=== PATIENT | male | born 1970 | race Caucasian/White ===

== ENCOUNTER 2020-08-31 22:44 | Emergency (ER) | payer SELFPAY ==
[2020-08-31] MEDS ORDERED: Sodium Chloride 0.9% 10 ML Syringe FLUSH PRN (23:06)
[2020-08-31] MEDS ORDERED: Sodium Chloride 0.9% 2.5 ML Syringe FLUSH PRN (23:06)
--- NOTE | 2020-08-31 23:08 | EDM.PDOC ---
ED HPI GENERAL MEDICAL PROBLEM - General Chief Complaint: Respiratory Problem Stated Complaint: COVID SYMPTOMS Time Seen by Provider: 08/31/20 23:02 - History of Present Illness INITIAL COMMENTS - FREE TEXT/NARRATIVE: History of present illness: The patient has a cough and generalized weakness since days ago. The patient developed a fever and chills tonight. White medicine fever intermittently come in. She has been trying to get him come in to be evaluated for his cough and weakness. They are both on a diet but his appetite is not very good now. He is generally weak and fatigued but not showing any focal neurologic deficit. The patient says he is not short of breath. The patient occasionally smokes but not recently. He did for high blood pressure. He does not know what his cholesterol is. History of heart or lung disease. [] Review of systems: As per history of present illness and below otherwise all systems reviewed and negative. Past medical history: As per history of present illness and as reviewed below otherwise noncontributory. Surgical history: As per history of present illness and as reviewed below otherwise noncontributory. Social history: No reported history of drug or alcohol abuse. Family history: As per history of present illness and as reviewed below otherwise noncontributory. Physical exam: Constitutional - well developed, well-nourished and in no acute distress HEENT - normocephalic, no evidence of trauma - external nose and mouth normal - no mass in neck and no JVD - mucosae moist EYES - full EOM, PERRL, no icterus - no evidence of inflammation, injection, or drainage Respiratory - no respiratory distress, equal bilateral expansion, lungs clear to auscultation and no abnormal lung sounds Cardiovascular - Regular Rhythm with S1 and S2 appreciated and no murmur, gallop or rub. GI - abdomen soft without distension or organomegaly - normal bowel sounds - no guard or rebound Musculoskeletal no gross deformity of long bones or joints - no tenderness, swelling or edema Neurologic - Alert and oriented times four - CN II-XII grossly intact - motor sensory and coordination symmetrically normal Psychiatric - appropriate mood and affect with normal thought content Hematologic - No petechiae or purpura - mucosa appropriate color and sclera not pale - normal nail bed color and refill Integument - no rash or evidence of trauma - normal turgor Diagnostics: [] Therapeutics: [] Impression: [] Plan: [] Definitive disposition and diagnosis as appropriate pending reevaluation and review of above. - Related Data Allergies Allergy/AdvReac Type Severity Reaction Status Date / Time codeine Allergy Vomiting Verified 08/31/20 23:07 Home Meds: Home Meds lisinopriL [Lisinopril] 30 mg PO QAM 08/31/20 [History] ED ROS GENERAL - Review of Systems Review Of Systems: Comprehensive ROS is negative, except as noted in HPI. ED EXAM, GENERAL - Physical Exam Exam: See Below Free Text/Narrative:: Physical exam as in the HPI EKG INTERPRETATION EKG Interpretation Comments: EKG done at 11:06 PM on 08/31/2020. The time read is 1:12 PM. Rhythm is sinus heart rate is 97 CT interval is 133 QT T is 492 this is 34 QRS shows Q waves in the inferior leads and T wave are normal T interval is normal no prior for comparison impression is no acute injury Course - Vital Signs Text/Narrative:: 1:55 AM update the patient had a blood pressure is low was low 80s on arrival and a BUN and creatinine indicating prerenal azotemia and profound dehydration. BUN was 62 with a creatinine of 3.8 the baseline in November was BUN 20 and creatinine 1.1. Patient had a liter of fluid and was still dropping his blood pressure into the 80s. Second liter running at this time. Patient is short of breath with minimal exertion. Oxygen saturation 93% but he is on 3 L of oxygen. Plan to continue nebulization while we give him 2 more liters of fluid. We need to verify that he can make urine. The hospital that are closest to us have been called and [facility] do not have beds for COVID patient. It would be a 7-hour transport to [place] and at this point I do not feel like patient can be safely placed in [facility] for 7 hours. He wants to stay here but we have no bed for him in this hospital. I am to give him a total of 3 L of fluid and bronchodilator treatment every hour. Then we will reassess. 04:14 AM patient has gradually needed more oxygen. Pressure has stabilized after 2 L of fluid and we are giving him third. His blood gas indicates a metabolic acidosis. His hypoxia is a concern. I discussed this case with Dr. Castro at [facility] in [place] because this is the closest facility with a bed that can accommodate this patient. Agreed to patient status could change dramatically in the timing take to get there by ground so we would arrange fixed wing transport so that he could remain in my care until closer to time he would arrive there. In the meantime his creatinine did not support a study to rule out pulmonary embolus and we elected invasive COVID-19 infection and unexplained hypoxia to give a dose of Lovenox now. The patient's renal function did not support administration on room does of air. The patient is to go to [facility]. Last Recorded V/S: Last Vital Signs Temp 98.8 F 08/31/20 22:59 Pulse 95 09/01/20 02:43 Resp 24 H 09/01/20 02:43 BP 104/35 L 09/01/20 02:43 Pulse Ox 92 L 09/01/20 02:43 - Orders/Labs/Meds Orders: Active Orders 24 hr Category Date Time Status EKG Documentation Completion [RC] AM Care 08/31/20 23:06 Active RT Post Treatment Assessment [RC] Click to Edit Care 08/31/20 23:33 Active RT Post Treatment Assessment [RC] Click to Edit Care 09/01/20 01:35 Active RT Pre-Treatment Assessment [RC] Click to Edit Care 08/31/20 23:33 Active RT Pre-Treatment Assessment [RC] Click to Edit Care 09/01/20 01:35 Active CORONAVIRUS COVID-19 PCR PHL Stat Lab 08/31/20 23:40 Received Albuterol [Ventolin HFA] Med 09/01/20 01:33 Active 18 gm INH Q2H PRN Sodium Chloride 0.9% [Normal Saline] 1,000 ml Med 08/31/20 23:30 Active IV ASDIRECTED Sodium Chloride 0.9% [Saline Flush] Med 08/31/20 23:06 Active 10 ml FLUSH ASDIRECTED PRN Sodium Chloride 0.9% [Saline Flush] Med 08/31/20 23:06 Active 2.5 ml FLUSH ASDIRECTED PRN Isolation [COMM] Routine Oth 08/31/20 23:07 Active Saline Lock Insert [OM.PC] Stat Oth 08/31/20 23:06 Ordered Medication Orders Albuterol (Ventolin Hfa) 18 gm INH Q2H PRN PRN Reason: Shortness of Breath Sodium Chloride (Normal Saline) 1,000 mls @ 999 mls/hr IV ASDIRECTED WALE Last Admin: 08/31/20 23:22 Dose: 999 mls/hr Documented by: BARBARA Sodium Chloride (Saline Flush) 10 ml FLUSH ASDIRECTED PRN PRN Reason: Keep Vein Open Last Admin: 08/31/20 23:23 Dose: 10 ml Documented by: BARBARA Sodium Chloride (Saline Flush) 2.5 ml FLUSH ASDIRECTED PRN PRN Reason: Keep Vein Open Last Admin: 08/31/20 23:23 Dose: 2.5 ml Documented by: BARBARA Labs: Laboratory Tests 08/31/20 08/31/20 08/31/20 Range/Units 23:09 23:09 23:09 WBC 9.55 (4.0-11.0) K/uL RBC 5.06 (4.50-5.90) M/uL Hgb 15.8 (13.0-17.0) g/dL Hct 45.1 (38.0-50.0) % MCV 89.1 (80.0-98.0) fL MCH 31.2 (27.0-32.0) pg MCHC 35.0 (31.0-37.0) g/dL RDW Std Deviation 46.1 (28.0-62.0) fl RDW Coeff of Nola 14 (11.0-15.0) % Plt Count 146 L (150-400) K/uL MPV 11.60 (7.40-12.00) fL Neut % (Auto) 81.3 H (48.0-80.0) % Lymph % (Auto) 10.5 L (16.0-40.0) % [place] % (Auto) 8.1 (0.0-15.0) % Eos % (Auto) 0.0 (0.0-7.0) % Baso % (Auto) 0.1 (0.0-1.5) % Neut # (Auto) 7.8 H (1.4-5.7) K/uL Lymph # (Auto) 1.0 (0.6-2.4) K/uL [place] # (Auto) 0.8 (0.0-0.8) K/uL Eos # (Auto) 0.0 (0.0-0.7) K/uL Baso # (Auto) 0.0 (0.0-0.1) K/uL Nucleated RBC % 0.0 /100WBC Nucleated RBCs # 0 K/uL ABG pH (7.35-7.45) ABG pCO2 (35-45) mmHG ABG pO2 (75-100) mmHG ABG HCO3 (22-26) mEq/L ABG Total CO2 ABG Base Excess (-2.0-2.0) Lactate (0.20-2.00) mmol/L Sodium 138 (136-148) mmol/L Potassium 3.1 L (3.5-5.1) mmol/L Chloride 101 (98-107) mmol/L Carbon Dioxide 23.6 (21.0-32.0) mmol/L BUN 62 H (7.0-18.0) mg/dL Creatinine 3.8 H (0.8-1.3) mg/dL Est Cr Clr Drug Dosing 20.75 mL/min Estimated GFR (MDRD) 16.9 ml/min Glucose 111 H (74-106) mg/dL Calcium 7.9 L (8.5-10.1) mg/dL Total Bilirubin 0.3 (0.2-1.0) mg/dL AST 74 H (15-37) IU/L ALT 60 (14-63) IU/L Alkaline Phosphatase 71 (46-116) U/L Troponin I < 0.050 (0.000-0.056) ng/mL B-Natriuretic Peptide 6 (<100) PG/ML Total Protein 6.8 (6.4-8.2) g/dL Albumin 3.2 L (3.4-5.0) g/dL Globulin 3.6 (2.6-4.0) g/dL Albumin/Globulin Ratio 0.9 (0.9-1.6) SARS CoV-2 RNA Rapid RUTH ANN (NEGATIVE) 08/31/20 09/01/20 09/01/20 Range/Units 23:40 01:55 03:55 WBC (4.0-11.0) K/uL RBC (4.50-5.90) M/uL Hgb (13.0-17.0) g/dL Hct (38.0-50.0) % MCV (80.0-98.0) fL MCH (27.0-32.0) pg MCHC (31.0-37.0) g/dL RDW Std Deviation (28.0-62.0) fl RDW Coeff of Nola (11.0-15.0) % Plt Count (150-400) K/uL MPV (7.40-12.00) fL Neut % (Auto) (48.0-80.0) % Lymph % (Auto) (16.0-40.0) % [place] % (Auto) (0.0-15.0) % Eos % (Auto) (0.0-7.0) % Baso % (Auto) (0.0-1.5) % Neut # (Auto) (1.4-5.7) K/uL Lymph # (Auto) (0.6-2.4) K/uL [place] # (Auto) (0.0-0.8) K/uL Eos # (Auto) (0.0-0.7) K/uL Baso # (Auto) (0.0-0.1) K/uL Nucleated RBC % /100WBC Nucleated RBCs # K/uL ABG pH 7.300 L (7.35-7.45) ABG pCO2 40 (35-45) mmHG ABG pO2 108 H (75-100) mmHG ABG HCO3 20 L (22-26) mEq/L ABG Total CO2 17.6 ABG Base Excess -6.5 L (-2.0-2.0) Lactate 1.1 (0.20-2.00) mmol/L Sodium (136-148) mmol/L Potassium (3.5-5.1) mmol/L Chloride (98-107) mmol/L Carbon Dioxide (21.0-32.0) mmol/L BUN (7.0-18.0) mg/dL Creatinine (0.8-1.3) mg/dL Est Cr Clr Drug Dosing mL/min Estimated GFR (MDRD) ml/min Glucose (74-106) mg/dL Calcium (8.5-10.1) mg/dL Total Bilirubin (0.2-1.0) mg/dL AST (15-37) IU/L ALT (14-63) IU/L Alkaline Phosphatase (46-116) U/L Troponin I (0.000-0.056) ng/mL B-Natriuretic Peptide (<100) PG/ML Total Protein (6.4-8.2) g/dL Albumin (3.4-5.0) g/dL Globulin (2.6-4.0) g/dL Albumin/Globulin Ratio (0.9-1.6) SARS CoV-2 RNA Rapid RUTH ANN POSITIVE H (NEGATIVE) Meds: Medications Generic Name Dose Route Start Last Admin Trade Name Freq PRN Reason Stop Dose Admin Albuterol 18 gm 09/01/20 01:33 Ventolin Hfa INH Q2H PRN Shortness of Breath Sodium Chloride 1,000 mls @ 999 mls/hr 08/31/20 23:30 08/31/20 23:22 Normal Saline IV 999 mls/hr ASDIRECTED WALE Administration Sodium Chloride 10 ml 08/31/20 23:06 08/31/20 23:23 Saline Flush FLUSH 10 ml ASDIRECTED PRN Administration Keep Vein Open Sodium Chloride 2.5 ml 08/31/20 23:06 08/31/20 23:23 Saline Flush FLUSH 2.5 ml ASDIRECTED PRN Administration Keep Vein Open Discontinued Medications Generic Name Dose Route Start Last Admin Trade Name Freq PRN Reason Stop Dose Admin Albuterol 18 gm 08/31/20 23:32 09/01/20 00:03 Ventolin Hfa INH 08/31/20 23:33 2 puff ONETIME ONE Administration Albuterol Confirm 08/31/20 23:57 09/01/20 00:30 Ventolin Hfa Administered 08/31/20 23:58 Not Given Dose 18 gm .ROUTE .STK-MED ONE Dexamethasone Confirm 09/01/20 00:23 09/01/20 00:30 Dexamethasone Administered 09/01/20 00:24 Not Given Dose 10 mg .ROUTE .STK-MED ONE Dexamethasone 10 mg 09/01/20 00:24 09/01/20 00:30 Dexamethasone IVPUSH 09/01/20 00:25 10 mg ONETIME ONE Administration Enoxaparin Sodium 120 mg 09/01/20 04:15 09/01/20 04:27 Lovenox SUBCUT 09/01/20 04:16 120 mg ONETIME ONE Administration Sodium Chloride 1,000 mls @ 999 mls/hr 09/01/20 01:18 09/01/20 01:23 Normal Saline IV 09/01/20 02:18 999 mls/hr .BOLUS ONE Administration Sodium Chloride 1,000 mls @ 999 mls/hr 09/01/20 01:34 09/01/20 03:41 Normal Saline IV 09/01/20 02:34 999 mls/hr .BOLUS ONE Administration Potassium Chloride 40 meq 09/01/20 01:19 09/01/20 01:23 Potassium Chloride PO 09/01/20 01:20 40 meq ONETIME ONE Administration Potassium Chloride Confirm 09/01/20 01:20 09/01/20 01:36 Potassium Chloride Administered 09/01/20 01:21 Not Given Dose 40 meq .ROUTE .STK-MED ONE Departure - Departure Time of Disposition: 05:30 Disposition: DC/Tfer to Acute Hospital 02 Condition: Serious Clinical Impression: COVID-19, Dehydration, Bronchospasm, TERESA (acute kidney injury), Hypoxia, Hypotension - Discharge Information Referrals: Marcia Barron ORE BUYER [Primary Care Provider] - Forms: ED Department Discharge Sepsis Event Note (ED) - Evaluation Sepsis Screening Result: No Definite Risk - Focused Exam Vital Signs: Vital Signs Temp Pulse Resp BP BP Pulse Ox 09/01/20 02:43 95 24 H 104/35 L 92 L 09/01/20 02:10 81 94/35 L 84 L 09/01/20 01:30 84 20 92/56 L 94 L 09/01/20 01:00 91 20 83/47 L 94 L 09/01/20 00:30 91 20 92/41 L 93 L 09/01/20 00:00 93 20 97/55 L 94 L 08/31/20 23:45 89 20 97/49 L 93 L 08/31/20 23:30 93 21 H 89/56 L 94 L 08/31/20 23:21 94 L 08/31/20 23:10 98 21 H 87/45 L 88 L 08/31/20 22:59 98.8 F 101 H 21 H 74/32 L 89 L - My Orders Last 24 Hours: My Active Orders 08/31/20 23:06 EKG Documentation Completion [RC] AM Sodium Chloride 0.9% [Saline Flush] 10 ml FLUSH ASDIRECTED PRN Sodium Chloride 0.9% [Saline Flush] 2.5 ml FLUSH ASDIRECTED PRN Saline Lock Insert [OM.PC] Stat 08/31/20 23:07 Isolation [COMM] Routine 08/31/20 23:30 Sodium Chloride 0.9% [Normal Saline] 1,000 ml IV ASDIRECTED 08/31/20 23:33 RT Post Treatment Assessment [RC] Click to Edit RT Pre-Treatment Assessment [RC] Click to Edit 08/31/20 23:40 CORONAVIRUS COVID-19 PCR PHL Stat 09/01/20 01:33 Albuterol [Ventolin HFA] 18 gm INH Q2H PRN 09/01/20 01:35 RT Post Treatment Assessment [RC] Click to Edit RT Pre-Treatment Assessment [RC] Click to Edit - Assessment/Plan Last 24 Hours: My Active Orders 08/31/20 23:06 EKG Documentation Completion [RC] AM Sodium Chloride 0.9% [Saline Flush] 10 ml FLUSH ASDIRECTED PRN Sodium Chloride 0.9% [Saline Flush] 2.5 ml FLUSH ASDIRECTED PRN Saline Lock Insert [OM.PC] Stat 08/31/20 23:07 Isolation [COMM] Routine 08/31/20 23:30 Sodium Chloride 0.9% [Normal Saline] 1,000 ml IV ASDIRECTED 08/31/20 23:33 RT Post Treatment Assessment [RC] Click to Edit RT Pre-Treatment Assessment [RC] Click to Edit 08/31/20 23:40 CORONAVIRUS COVID-19 PCR PHL Stat 09/01/20 01:33 Albuterol [Ventolin HFA] 18 gm INH Q2H PRN 09/01/20 01:35 RT Post Treatment Assessment [RC] Click to Edit RT Pre-Treatment Assessment [RC] Click to Edit
[2020-08-31] MEDS ORDERED: Sodium Chloride 0.9% 1,000 ML IV SCH (23:30)
[2020-08-31] MEDS ORDERED: Albuterol 8 GM Inhaler INH ONE (23:32)
[2020-08-31 23:47] LABS: BLOOD UREA NITROGEN,BUN 62 mg/dL (7.0-18.0); CARBON DIOXIDE,CO2 23.6 mmol/L (21.0-32.0); CHLORIDE,CL 101 mmol/L (98-107); GLUCOSE RANDOM 111 mg/dL (74-106); POTASSIUM,K 3.1 mmol/L (3.5-5.1); SODIUM,NA 138 mmol/L (136-148)
[2020-08-31] MEDS ORDERED: Albuterol HFA 18 Gm Inhaler ONE (23:57)
--- NOTE | 2020-09-01 00:21 | CR ---
HISTORY: Cough COMPARISON: None available FINDINGS: A portable erect AP view of the chest was obtained at 23 47 hours. A few calcified granulomata are seen in the left perihilar lung and more laterally in the left mid-upper lung. The lungs are otherwise clear. No focal or diffuse infiltrates are present. The heart is normal in size. The mediastinum is normal in appearance. The osseous structures are normal in appearance for the patient`s age. IMPRESSION: No active disease seen in the chest. Multiple calcified granulomata in the left perihilar lung as well as in the lateral left upper lung. Dictated by Fabian Ashley MD @ Sep 01 2020 12:15AM Signed by Dr. Fabian Ashley @ Sep 01 2020 12:20AM
[2020-09-01] MEDS ORDERED: Dexamethasone 10 MG/ML SDV ONE (00:23)
[2020-09-01] MEDS ORDERED: Dexamethasone 10 MG/ML SDV IVPUSH ONE (00:24)
[2020-09-01] MEDS ORDERED: Sodium Chloride 0.9% 1,000 ML IV ONE ×2 (01:18→01:34)
[2020-09-01] MEDS ORDERED: Potassium Chloride 10% 20 MEQ/15 ML Soln 30 ML UD Cup PO ONE (01:19)
[2020-09-01] MEDS ORDERED: Potassium Chloride 10% 20 MEQ/15 ML Soln 30 ML UD Cup ONE (01:20)
[2020-09-01] MEDS ORDERED: Albuterol HFA 18 Gm Inhaler INH PRN (01:33)
[2020-09-01] MEDS ORDERED: Enoxaparin 150 MG/1 ML Syringe SUBCUT ONE (04:15)
== END 2020-09-01 06:08 ==
LOC: MW.ED 22:44
DX: U07.1 COVID-19 (principal); J98.01 Acute bronchospasm; E86.0 Dehydration; R09.02 Hypoxemia; I95.9 Hypotension, unspecified; N17.9 Acute kidney failure, unspecified; F17.200 Nicotine dependence, unspecified, uncomplicated; Z88.5 Allergy status to narcotic agent
CPT/HCPCS: 36415; 36600; 71045; 80053; 82803; 83605; 83880; 84484; 85025; 87635; 87804; 93005; 96361; 96372; 96374; 99285; A9270; J1100; J1650; J7030; J3535-GY; U0002

== ENCOUNTER 2021-03-05 12:19 | Emergency (ER) | payer OTHER ==
[2021-03-05] MEDS ORDERED: Lidocaine 5% Oint 35.44 GM Tube TOP ONE (12:58)
[2021-03-05] MEDS ORDERED: Naproxen 500 MG Tab PO ONE (12:58)
[2021-03-05] MEDS ORDERED: Lidocaine 5% 700 MG Patch TRDERM ONE (13:01)
[2021-03-05] MEDS ORDERED: Lidocaine 5% 700 MG Patch ONE (13:02)
--- NOTE | 2021-03-05 13:02 | EDM.PDOC ---
ED HPI GENERAL MEDICAL PROBLEM - General Chief Complaint: Back Pain or Injury Stated Complaint: FELL ON BACK Time Seen by Provider: 03/05/21 12:31 Source of Information: Reports: Patient History Limitations: Reports: No Limitations - History of Present Illness INITIAL COMMENTS - FREE TEXT/NARRATIVE: Patient is a 51-year-old male presents today for lower left-sided back pain. P atient dates that he was at work when he slipped landing with back. Patient had some pain on the neck area try spine Flexeril at home without relief. Patient denies any lower extremity numbness or weakness no urinary incontinence or saddle anesthesia. Patient denies any other injuries are initiated. Lower Back Pain Score (Numeric/FACES): 9 - Related Data Allergies Allergy/AdvReac Type Severity Reaction Status Date / Time codeine Allergy Vomiting Verified 03/05/21 12:30 Home Meds: Home Meds lisinopriL [Lisinopril] 30 mg PO QAM 08/31/20 [History] Cyclobenzaprine [Flexeril] 5 mg PO Q8HR PRN 5 Days #15 tab 03/05/21 [Rx] Lidocaine 5% [Lidoderm 5%] 1 patch TOP DAILY 5 Days #5 patch 03/05/21 [Rx] Naproxen Sodium 550 mg PO BID PRN 5 Days #10 tablet 03/05/21 [Rx] Past Medical History Cardiovascular History: Reports: Hypertension Respiratory History: Reports: COPD Gastrointestinal History: Reports: None Genitourinary History: Reports: None Musculoskeletal History: Reports: None - Infectious Disease History Infectious Disease History: Reports: Chicken Pox, Measles, Mumps - Past Surgical History Cardiovascular Surgical History: Reports: None GI Surgical History: Reports: None Musculoskeletal Surgical History: Reports: Other (See Below) Other Musculoskeletal Surgeries/Procedures:: R leg Social & Family History - Family History Family Medical History: No Pertinent Family History - Tobacco Use Tobacco Use Status *Q: Unknown Ever Used Tobacco - Caffeine Use Caffeine Use: Reports: Coffee - Recreational Drug Use Recreational Drug Use: No ED ROS GENERAL - Review of Systems Review Of Systems: See Below Constitutional: Reports: No Symptoms HEENT: Reports: No Symptoms Respiratory: Reports: No Symptoms Cardiovascular: Reports: No Symptoms Endocrine: Reports: No Symptoms GI/Abdominal: Reports: No Symptoms : Reports: No Symptoms Musculoskeletal: Reports: Back Pain Skin: Reports: No Symptoms Neurological: Reports: No Symptoms Psychiatric: Reports: No Symptoms Hematologic/Lymphatic: Reports: No Symptoms Immunologic: Reports: No Symptoms ED EXAM,LOWER BACK PAIN/INJURY - Physical Exam Exam: See Below Exam Limited By: No Limitations General Appearance: Alert, WD/WN, No Apparent Distress Respiratory/Chest: No Respiratory Distress, Lungs Clear Cardiovascular: Normal Peripheral Pulses, Regular Rate, Rhythm GI/Abdominal: Normal Bowel Sounds, Soft, Non-Tender Back Exam: Normal Inspection, Full Range of Motion, Paraspinal Tenderness. No: Vertebral Tenderness Extremities: Normal Inspection, Normal Range of Motion, Non-Tender Course - Vital Signs Last Recorded V/S: Last Vital Signs Temp 97.2 F 03/05/21 12:31 Pulse 89 03/05/21 12:31 Resp 20 03/05/21 12:31 BP 128/75 03/05/21 12:31 Pulse Ox - Orders/Labs/Meds Meds: Medications Discontinued Medications Generic Name Dose Route Start Last Admin Trade Name Freq PRN Reason Stop Dose Admin Cyclobenzaprine HCl 5 mg 03/05/21 12:58 03/05/21 13:08 Cyclobenzaprine 10 Mg Tab PO 03/05/21 12:59 10 mg ONETIME ONE Administration Lidocaine 700 mg 03/05/21 13:01 03/05/21 13:10 Lidocaine 5% 700 Mg Patch TRDERM 03/05/21 13:02 700 mg ONETIME ONE Administration Lidocaine Confirm 03/05/21 13:02 03/05/21 13:28 Lidocaine 5% 700 Mg Patch Administered 03/05/21 13:03 Not Given Dose 700 mg .ROUTE .STK-MED ONE Naproxen 500 mg 03/05/21 12:58 03/05/21 13:09 Naproxen 500 Mg Tab PO 03/05/21 12:59 500 mg ONETIME ONE Administration - Re-Assessments/Exams Free Text/Narrative Re-Assessment/Exam: 03/05/21 13:40 Patient pain is improved patient still able to ambulate. Will send patient home with lidocaine patch and naproxen. Departure - Departure Time of Disposition: 13:40 Disposition: Home, Self-Care 01 Condition: Good Clinical Impression: Back pain - Discharge Information *PRESCRIPTION DRUG MONITORING PROGRAM REVIEWED*: Not Applicable *COPY OF PRESCRIPTION DRUG MONITORING REPORT IN PATIENT GRISELDA: Not Applicable Prescriptions: Cyclobenzaprine [Flexeril] 5 mg PO Q8HR PRN 5 Days #15 tab PRN Reason: Cramping Lidocaine 5% [Lidoderm 5%] 1 patch TOP DAILY 5 Days #5 patch Naproxen Sodium 550 mg PO BID PRN 5 Days #10 tablet PRN Reason: Pain (Moderate 4-6) Instructions: Acute Back Pain, Adult Referrals: Marcia Barron [employer]AL[employer] CLOTH TESTER [Primary Care Provider] - Forms: ED Department Discharge Additional Instructions: The following information is given to patients seen in the emergency department who are being discharged to home. This information is to outline your options for follow-up care. We provide all patients seen in our emergency department with a follow-up referral. The need for follow-up, as well as the timing and circumstances, are variable depending upon the specifics of your emergency department visit. If you don't have a primary care physician on staff, we will provide you with a referral. We always advise you to contact your personal physician following an emergency department visit to inform them of the circumstance of the visit and for follow-up with them and/or the need for any referrals to a consulting specialist. The emergency department will also refer you to a specialist when appropriate. This referral assures that you have the opportunity for follow-up care with a specialist. All of these measure are taken in an effort to provide you with optimal care, which includes your follow-up. Under all circumstances we always encourage you to contact your private physician who remains a resource for coordinating your care. When calling for follow-up care, please make the office aware that this follow-up is from your recent emergency room visit. If for any reason you are refused follow-up, please contact the [facility] Department at and asked to speak to the emergency department charge nurse. Please follow up with your primary care physician. If you do not have a primary care physician, see below: [facility] [address] [place] [id number] [facility] [address] [place] [address] You were seen today for back pain after a fall. At the exam your pain is mostly over the muscles. We provided you with a lidocaine patch to help improve the pain. We will send you home with a lidocaine patch and naproxen with Flexeril. Also gave you a work note for a few days off. If you have any difficulty walking problems urinating or other increased pain please return to ED. Sepsis Event Note (ED) - Evaluation Sepsis Screening Result: No Definite Risk - Focused Exam Vital Signs: Vital Signs Temp Pulse Resp BP 03/05/21 12:31 97.2 F 89 20 128/75 - Assessment/Plan Plan: Is a 51-year-old male who presents today for back pain after falling while at work. Patient has some paraspinal muscle no spinal tenderness will. Will provide pain control and reassess.
[2021-03-05] MEDS: Cyclobenzaprine 10 MG Tab PO ONE (13:08)
[2021-03-07] MEDS: Cyclobenzaprine 10 MG Tab PO ONE (08:08)
== END 2021-03-05 13:53 | disposition home or self-care (01) ==
LOC: MW.ED 12:19
DX: M54.5 Low back pain (principal); I10 Essential (primary) hypertension; J44.9 Chronic obstructive pulmonary disease, unspecified; Z88.5 Allergy status to narcotic agent; Z79.899 Other long term (current) drug therapy
CPT/HCPCS: 99283; A9270

== ENCOUNTER 2022-01-11 03:15 | Emergency (ER) | payer OTHER ==
[2022-01-11] MEDS ORDERED: Cyclobenzaprine 10 MG Tab PO ONE (04:30)
[2022-01-11] MEDS ORDERED: Ketorolac 30 MG/ML SDV IM ONE (04:30)
== END 2022-01-11 06:45 | disposition home or self-care (01) ==
LOC: MW.ED 03:15
DX: S46.911A Strain of unspecified muscle, fascia and tendon at shoulder and upper arm level, right arm, initial encounter (principal); S29.012A Strain of muscle and tendon of back wall of thorax, initial encounter; I10 Essential (primary) hypertension; J44.9 Chronic obstructive pulmonary disease, unspecified; Z88.5 Allergy status to narcotic agent; Z79.899 Other long term (current) drug therapy; W18.30XA Fall on same level, unspecified, initial encounter
CPT/HCPCS: 72128; 72131; 73030; 96372; 99283; A9270; J1885

== ENCOUNTER 2022-04-30 07:12 | Day surgery (SDC) | payer OTHER ==
[~2022-04-30 07:12] MED LIST: Lactated Ringers 1,000 ML IV SCH
[2022-04-30] MEDS ORDERED: propofoL 100 ML ONE (07:23)
[2022-04-30] MEDS ORDERED: Glycopyrrolate 0.2 MG/ML SDV ONE (07:23)
[2022-04-30] MEDS ORDERED: Lidocaine 2% 100 MG/5 ML Syringe ONE (07:23)
== END 2022-04-30 09:10 | disposition home or self-care (01) ==
LOC: MW.SDS 07:12
PROVIDERS: ATTEND Surgery
DX: Z12.11 Encounter for screening for malignant neoplasm of colon (principal); K29.70 Gastritis, unspecified, without bleeding; K44.9 Diaphragmatic hernia without obstruction or gangrene; K57.30 Diverticulosis of large intestine without perforation or abscess without bleeding; K31.89 Other diseases of stomach and duodenum; I10 Essential (primary) hypertension; J44.9 Chronic obstructive pulmonary disease, unspecified; K20.90 Esophagitis, unspecified without bleeding; G47.30 Sleep apnea, unspecified; E55.9 Vitamin D deficiency, unspecified; Z88.5 Allergy status to narcotic agent; E66.9 Obesity, unspecified; Z68.42 Body mass index [BMI] 45.0-49.9, adult; Z79.899 Other long term (current) drug therapy; Z87.891 Personal history of nicotine dependence
CPT/HCPCS: 43239; 45378; J2704; J3490; J7120; 00813